=== PATIENT | female | born 2000 | race Caucasian/White ===

== ENCOUNTER 2020-11-30 20:34 | Day surgery (SDCO) | payer OTHER ==
[~2020-11-30] VITALS: Ht 165.1 cm; Wt 110.5 kg
[~2020-11-30 20:34] MED LIST: CYCLOBENZAPRINE10 MG PO; IBUPROFEN800 MG PO; NORCO 5-325 TA1 EACH PO; PREDNISONE 20MG20 MG PO
[2020-11-30 23:08] LABS: BASOPHIL 0.7 % (0-2); HCT 39.5 % (37.0-47.0); HGB 13.7 g/dl (12.5-16.0); LYMPHOCYTE 32.3 % (15-48); MCH 31.3 pg (25.0-31.0); MCHC 34.7 g/dL (32.0-36.0); MCV 90.2 fL (78.0-100.0); MONOCYTE 7.6 % (0-12); MPV 11.8 fL (6.0-9.5); NEUTROPHIL 56.1 % (41-80); NRBC 0; PLT 173 K/uL (150-400); RBC 4.38 M/uL (4.20-5.40); WBC 7.3 K/uL (4.0-10.5)
[2020-11-30 23:09] LABS: AMPHETAMINES NEGATIVE (NEGATIVE); BARBITURATES NEGATIVE (NEGATIVE); BILIRUBIN NEGATIVE (NEGATIVE); BLOOD NEGATIVE Ery/uL (NEGATIVE); CLARITY CLEAR (CLEAR); COLOR YELLOW (YELLOW); ECSTASY (MDMA) NEGATIVE (NEGATIVE); GLUCOSE (U) NORMAL (NORMAL); LEUKOCYTES TRACE Leu/uL (NEGATIVE); MARIJUANA (THC) POSITIVE (NEGATIVE); METHADONE NEGATIVE (NEGATIVE); NITRITE NEGATIVE (NEGATIVE); OPIATES NEGATIVE (NEGATIVE); OXYCODONE NEGATIVE (NEGATIVE); PROTEIN NEGATIVE (NEGATIVE); SPECIFIC GRAVITY >=1.030 (1.001-1.030); UROBILINOGEN 0.2 mg/dL (0.2-1.0)
[2020-11-30 23:16] LABS: AMORPHOUS URATES CRYSTALS TRACE; BACTERIA TRACE; MUCOUS TRACE
[2020-11-30 23:24] LABS: ALBUMIN 3.8 g/dL (3.4-5.0); BILIRUBIN - TOTAL 0.3 mg/dL (0.2-1.0); BUN/CREAT RATIO (CALC) 21.7 RATIO; CREATININE 0.69 mg/dL (0.51-0.95); GLOBULIN (CALCULATION) 3.2 g/dL; POTASSIUM 4.3 mmol/L (3.5-5.1)
[2020-12-01] MEDS ORDERED: BUSPIRONE HCL15 MG PO (10:14)
[2020-12-01] MEDS ORDERED: TOPAMAX50 MG PO (10:46)
[2020-12-01] MEDS ORDERED: BUSPAR5 MG PO (10:47)
[2020-12-01] MEDS ORDERED: TRAZODONE HCL50 MG PO (10:47)
[2020-12-01] MEDS ORDERED: ZOLOFT100 M1 PO (10:47)
[2020-12-01] MEDS ORDERED: ZYPREXA 5MG TABL5 MG PO (10:48)
[2020-12-01] MEDS ORDERED: PROZAC20 MG PO (10:48)
[2020-12-02 05:58] LABS: BASOPHIL 0.1 % (0-2); EOSINOPHIL 0.8 % (0-5); HCT 35.6 % (37.0-47.0); HGB 12.3 g/dl (12.5-16.0); LYMPHOCYTE 16.4 % (15-48); MCH 31.1 pg (25.0-31.0); MCHC 34.6 g/dL (32.0-36.0); MCV 89.9 fL (78.0-100.0); MONOCYTE 5.1 % (0-12); MPV 12.2 fL (6.0-9.5); NEUTROPHIL 77.4 % (41-80); NRBC 0; PLT 153 K/uL (150-400); RBC 3.96 M/uL (4.20-5.40); RDW 11.8 % (11.5-14.0); WBC 8.3 K/uL (4.0-10.5)
[2020-12-02 06:32] LABS: BUN/CREAT RATIO (CALC) 12.5 RATIO; CREATININE 0.56 mg/dL (0.51-0.95); POTASSIUM 3.6 mmol/L (3.5-5.1)
[2020-12-02] MEDS ORDERED: ELIQUIS2.5 MG PO (09:48)
[2020-12-02] MEDS ORDERED: NORCO 5-325 TA1 EACH PO (09:48)
[2020-12-02] MEDS ORDERED: DULCOLAX5 MG PO (09:49)
[2020-12-02] MEDS ORDERED: ONDANSETRON ODT4 MG PO (09:55)
[2020-12-02] MEDS ORDERED: AUGMENTIN 875-1 EACH PO (12:26)
== END 2020-12-02 14:17 | disposition home or self-care (01) ==
LOC: FER 20:34 → FMS 12-01 09:26
PROVIDERS: Nurse Practitioner Family; ADMIT Allergy & Immunology Allergy
DX: K80.13 Calculus of gallbladder with acute and chronic cholecystitis with obstruction (principal); K82.1 Hydrops of gallbladder; R16.2 Hepatomegaly with splenomegaly, not elsewhere classified; K76.0 Fatty (change of) liver, not elsewhere classified; F41.9 Anxiety disorder, unspecified; F32.9 Major depressive disorder, single episode, unspecified; G47.00 Insomnia, unspecified; F17.210 Nicotine dependence, cigarettes, uncomplicated; Z20.822 Contact with and (suspected) exposure to COVID-19; Z86.718 Personal history of other venous thrombosis and embolism
CPT/HCPCS: 36415; 76705; 80048; 80053; 80305; 81001; 85025; C1765; G0378; J0694; J1100; J1170; J1650; J1885; J2250; J2405; J2543; J2704; J3010; J7030; J7120; Q9967; U0002

== ENCOUNTER 2021-03-01 11:03 | Emergency (ER) | payer OTHER ==
[~2021-03-01 11:03] MED LIST changes: +AUGMENTIN 875-1 EACH PO; +BUSPAR5 MG PO; +BUSPIRONE HCL15 MG PO; +DULCOLAX5 MG PO; +ELIQUIS2.5 MG PO; +ONDANSETRON ODT4 MG PO; +PROZAC20 MG PO; +TOPAMAX50 MG PO; +TRAZODONE HCL50 MG PO; +ZOLOFT100 M1 PO; +ZYPREXA 5MG TABL5 MG PO
[2021-03-01 12:52] LABS: INFLUENZA A NAA NEGATIVE (NEGATIVE)
[2021-03-01 13:06] LABS: CORONAVIRUS 2019 SARS-COV-2 POSITIVE (NEGATIVE)
[2021-03-01 16:11] LABS: BILIRUBIN NEGATIVE (NEGATIVE); BLOOD NEGATIVE Ery/uL (NEGATIVE); COLOR RED (YELLOW); GLUCOSE (U) NORMAL (NORMAL); LEUKOCYTES 1+ Leu/uL (NEGATIVE); NITRITE POSITIVE (NEGATIVE); PROTEIN NEGATIVE (NEGATIVE); SPECIFIC GRAVITY >=1.030 (1.001-1.030)
[2021-03-01 16:15] LABS: CLARITY CLOUDY (CLEAR)
[2021-03-01 16:18] LABS: AMORPHOUS URATES CRYSTALS LARGE; BACTERIA TRACE
[2021-03-01] MEDS ORDERED: BACTRIM DS TAB1 EACH PO (16:28)
== END 2021-03-01 16:49 | disposition home or self-care (01) ==
LOC: FER 11:03
PROVIDERS: Emergency Medicine
DX: U07.1 COVID-19 (principal); N39.0 Urinary tract infection, site not specified; F17.210 Nicotine dependence, cigarettes, uncomplicated
CPT/HCPCS: 71045; 81001; 87088; U0002

== ENCOUNTER 2021-03-10 12:46 | Emergency (ER) | payer OTHER ==
[~2021-03-10 12:46] MED LIST changes: +BACTRIM DS TAB1 EACH PO
[2021-03-10 14:10] LABS: BILIRUBIN NEGATIVE (NEGATIVE); BLOOD NEGATIVE Ery/uL (NEGATIVE); CLARITY CLEAR (CLEAR); COLOR YELLOW (YELLOW); GLUCOSE (U) NORMAL (NORMAL); LEUKOCYTES 1+ Leu/uL (NEGATIVE); NITRITE NEGATIVE (NEGATIVE); PROTEIN TRACE (LOW) mg/dL (NEGATIVE); SPECIFIC GRAVITY 1.025 (1.001-1.030); UROBILINOGEN 0.2 mg/dL (0.2-1.0)
[2021-03-10 14:15] LABS: AMPHETAMINES NEGATIVE (NEGATIVE); BARBITURATES NEGATIVE (NEGATIVE); ECSTASY (MDMA) NEGATIVE (NEGATIVE); MARIJUANA (THC) POSITIVE (NEGATIVE); METHADONE NEGATIVE (NEGATIVE); OPIATES NEGATIVE (NEGATIVE); OXYCODONE NEGATIVE (NEGATIVE)
[2021-03-10 14:18] LABS: CORONAVIRUS 2019 SARS-COV-2 NEGATIVE (NEGATIVE); INFLUENZA A NAA NEGATIVE (NEGATIVE)
[2021-03-10 14:26] LABS: BACTERIA 1+
[2021-03-10] MEDS ORDERED: BACLOFEN 10MG T10 MG PO (14:48)
[2021-03-10] MEDS ORDERED: NAPROXEN500 MG PO (14:48)
[2021-03-10] MEDS ORDERED: BACTRIM DS TAB1 EACH PO (14:48)
[2021-03-10 15:09] LABS: BASOPHIL 0.5 % (0-2); HGB 13.2 g/dl (12.5-16.0); LYMPHOCYTE 34.1 % (15-48); MCH 31.6 pg (25.0-31.0); MCHC 35.7 g/dL (32.0-36.0); MCV 88.5 fL (78.0-100.0); MONOCYTE 9.4 % (0-12); MPV 11.3 fL (6.0-9.5); NEUTROPHIL 51.8 % (41-80); NRBC 0; PLT 197 K/uL (150-400); RBC 4.18 M/uL (4.20-5.40); RDW 11.8 % (11.5-14.0)
[2021-03-10 15:25] LABS: CREATININE 0.73 mg/dL (0.51-0.95)
[2021-03-10 15:26] LABS: POTASSIUM 3.3 mmol/L (3.5-5.1)
== END 2021-03-10 15:45 | disposition home or self-care (01) ==
LOC: FER 12:46
PROVIDERS: Nurse Practitioner Family
DX: R55 Syncope and collapse (principal); M54.2 Cervicalgia; M54.50 Low back pain, unspecified; N39.0 Urinary tract infection, site not specified; F17.210 Nicotine dependence, cigarettes, uncomplicated; Z20.822 Contact with and (suspected) exposure to COVID-19
CPT/HCPCS: 36415; 70450; 72125; 72131; 80048; 80305; 81001; 85025; 87088; U0002